=== PATIENT | female | born 1975 | race Caucasian/White ===

== ENCOUNTER → 2018-03-21 | Day surgery (SDC) | payer OTHER, BC ==
[~2018-03-21] MED LIST: HYDROmorphone 2 MG/ML VIAL IV PRN; IV RINGERS,LACTATED 1000ML 1,000 ML IV SCH; LIDOCAINE 1% PF 2 ML VIAL. ID PRN; LIDOCAINE 2% PF 2ML VIAL. ONE; METF500T16 PO; MORPHINE SULFATE 2 MG/ML VIAL. IV PRN; ONDANSETRON PF 4 MG/2 ML VIAL. IV PRN; PROCHLORPERAZINE 10 MG/2 ML VIAL. IV PRN; PROPOFOL 40 ML IV ONE; fentaNYL PF VIAL 100 MCG/2 ML VIAL IV PRN
[2018-03-21 09:00] VITALS: BP 131/72
[2018-03-21 09:16] LABS: U PREG PATIENT NEGATIVE (NEG)
--- NOTE | 2018-03-21 09:16 | HP ---
ADMIT DATE: 03/21/2018 REFERRING PHYSICIAN: Dr. Jewell. HISTORY OF PRESENT ILLNESS: A 43-year-old female with past medical history significant for Crohn's colitis as well as nephrolithiasis, chronic GERD, was seen for surveillance colon exam. She has been off all mesalamine and steroid medications for the past several years, in remission. Has between 1 and 3 bowel movements daily without blood, on metformin. No change in weight or appetite is noted. No sacroiliitis is encountered. She is otherwise in good health without additional complaints. PAST MEDICAL HISTORY: Crohn's, duodenal ulcers, GERD, diabetes. ALLERGIES: None. MEDICATIONS: Metformin 500 mg b.i.d. FAMILY AND SOCIAL HISTORY: Nonsmoker, social drinker. PAST SURGICAL HISTORY: Cholecystectomy. REVIEW OF SYSTEMS: Per records. PHYSICAL EXAMINATION: GENERAL: Reveals a well-nourished, well-developed female who is alert, cooperative, in no acute distress. VITAL SIGNS: Temperature is 98.1, pulse 85, respirations 20. HEENT: Reveals normocephalic and atraumatic head. Pupils and extraocular muscles are not tested. Sclerae anicteric. NECK: Supple. LUNGS: Clear. CARDIOVASCULAR: Reveals an S1, S2 without S3, S4 or appreciable murmur. ABDOMEN: Reveals soft abdomen, normal bowel sounds without appreciable hepatosplenomegaly. EXTREMITIES: Reveals no cyanosis, clubbing, edema. IMPRESSION: Crohn's disease, presently in remission. Surveillance endoscopy with biopsies recommended to assess for dysplasia. Risks and benefits were discussed. The patient is willing to proceed. RAJINDER WHITLOCK MD DR: TAYLOR/nts JOB#: [id number] / [id number]
--- NOTE | 2018-03-25 10:10 | PATHOLOGY ---
[facility] Accession Number: [id number] . 01 Material submitted: . PART A: RIGHT COLON BX PART B: TRANSVERSE COLON BX PART C: LEFT COLON BX . 01 Clinical history: . Pre-OP DX: HX Crohn's Post-OP DX: Rule out dysplasia . 02 Diagnosis: A. Segments of small intestine and colonic mucosa, right colon biopsies: - Mild nonspecific ileitis and focal mild active colitis with granulomas. . B. Colonic mucosa, transverse colon biopsies: - Focal mild active colitis with granulomas. . C. Colonic mucosa, left colon biopsies: - Focal mild active colitis with granulomas. . 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 02 Comment: Sections of the right colon biopsies reveal segments of small intestine mucosa and colonic mucosa. The small intestine mucosa shows mild active chronic inflammation with a few hyperplastic mucosa associated lymphoid aggregates. There are no granulomas. Sections of the colonic mucosa of the right colon biopsies as well as the colonic mucosa of the transverse colon and left colon biopsies appear similar and show patchy foci of mild active colitis. These foci show acute cryptitis (crypt neutrophilic injury) and scattered small intramucosal granulomas. However, there is no mucosal ulceration or glandular architectural distortion. There is no dysplasia or evidence of malignancy. . 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 02 Electronically signed: . Tom Jose MD, Pathologist NPI- [id number] . 01 Gross description: . A. Received in formalin labeled "Hali Stahl, right colon BX," are multiple segments of ordaz soft tissue measuring 1.6 x 0.6 x 0.1 cm in aggregate dimensions. The specimen is filtered and entirely submitted in cassette A1. . B. Received in formalin labeled "Maribeth, Hali, transverse colon BX," are multiple segments of ordaz soft tissue measuring 1.6 x 0.6 x 0.1 cm in aggregate dimensions. The specimen is filtered and entirely submitted in cassette B1. . C. Received in formalin labeled "Maribeth, Hali, left colon BX," are multiple segments of ordaz soft tissue measuring 1.9 x 0.6 x 0.2 cm in aggregate dimensions. The specimen is filtered and entirely submitted in cassette C1. (TSD; 03/21/2018) TOB/TOB . 02 Pathologist provided ICD-10: K52.9, K63.89 . 02 CPT . 542973, 459980, 549441 Specimen Comment: A courtesy copy of this report has been sent to Specimen Comment: [phone], . Specimen Comment: Report sent to / DR RUSH Performed at: 01 [facility] [address], [place], [place] [id number] MD Cisco Hodge MD Phone: [phone] Performed at: 02 [facility] [address] [place], [place] [id number] MD Tom Jose MD Phone: [phone]
== END | disposition home or self-care (01) ==
LOC: SURG 06:58
PROVIDERS: ATTEND Internal Medicine Gastroenterology
DX: K52.89 Other specified noninfective gastroenteritis and colitis (principal); K63.89 Other specified diseases of intestine; K64.0 First degree hemorrhoids; K50.10 Crohn's disease of large intestine without complications; N20.0 Calculus of kidney; K21.9 Gastro-esophageal reflux disease without esophagitis; E11.9 Type 2 diabetes mellitus without complications; D64.9 Anemia, unspecified; K26.9 Duodenal ulcer, unspecified as acute or chronic, without hemorrhage or perforation; Z90.49 Acquired absence of other specified parts of digestive tract; Z98.890 Other specified postprocedural states; Z79.84 Long term (current) use of oral hypoglycemic drugs
CPT/HCPCS: 45380; 81025; 82962; 88305; J2001; J2704; 45385